=== PATIENT | male | born 1965 | race Caucasian/White ===

== ENCOUNTER 2017-09-18 13:00 | Day surgery (SDC) | payer BC ==
[~2017-09-18 13:00] MED LIST: PROPARACAINE 0.5% OPHTH SOL 15 ML BTTL ONE; TROP 1%/CYCLOPEN 1%/PHENYL 2% DROPS ONE
[2017-09-18] MEDS ORDERED: MIDAZOLAM INJ 2 MG/2 ML VIAL ONE (14:18)
[2017-09-18] MEDS ORDERED: PROPARACAINE 0.5% OPHTH SOL 15 ML BTTL LEFT_EYE ONE (14:44)
[2017-09-18] MEDS ORDERED: LIDOCAINE 1% PF 2 ML AMP INJ ONE (14:53)
[2017-09-18] MEDS ORDERED: DEXAMETHASONE 0.1% OPHTH SOL 1 DROP LEFT_EYE ONE ×2 (14:53→15:02)
[2017-09-18] MEDS ORDERED: BRIMONIDINE 0.2% OPHTH DROPS LEFT_EYE ONE ×2 (14:54→15:02)
[2017-09-18] MEDS ORDERED: TOBRAMYCIN SULF 0.3 % OPHT SOL 1 DROP LEFT_EYE ONE ×2 (14:54→15:02)
[2017-09-18 15:39] VITALS: BP 127/96; TEMP 97.8; O2SAT 99
== END 2017-09-18 15:30 | disposition home or self-care (01) ==
LOC: AMB 13:00
PROVIDERS: ATTEND Ophthalmology
DX: H25.12 Age-related nuclear cataract, left eye (principal)
CPT/HCPCS: 00142; 66984; J2250